=== PATIENT | female | born 1970 ===

== ENCOUNTER 2025-08-18 19:56 | Outpatient (REF) | payer BC, SELFPAY ==
--- OUTSIDE RECORDS SUMMARY | 2025-08-05 09:00 | XMS_ITS | Encounter Summary ---
Author Organization [facility] Address [address] [place] [address] Care Team Providers Care Senior Trial Attorney Name Role Phone David Hobbs MD Primary Care Provider + [phone] Reason for Visit * ReasonCommentsConsent Or InstructionsSurgery consult for RT foot Encounter Details DateTypeDepartmentCare Team (Latest Contact Info)Aypozvyzrbr56/12/2025 9:00 AM ESTOffice Visit [facility] [address] [place] [address], DPM FACFAS [address] [facility] [place] [address] Hallux valgus of right foot (Primary Dx); Neoplasm of uncertain behavior of skin Social History Tobacco UseTypesPacks/DayYears UsedDateSmoking Tobacco: FormerCigarettes Smokeless Tobacco: Never Tobacco Cessation:Counseling Given: Yes Alcohol UseStandard Drinks/WeekCommentsYes4 (1 standard drink = 0.6 oz pure alcohol)caffeine 3-4 cups/dayCommentsUnknownSex and Gender Information ValueDate RecordedSex Assigned at TpxgvEqmfun38/05/2023 9:59 AM ESTLegal Sex Asjyls2512/06/2022 6:56 PM EDTGender HvwgwnlsKcxfrz49/05/2023 9:59 AM ESTSexual OrientationNot on filedocumented as of this encounter Last Filed Vital Signs Vital SignReadingTime TakenCommentsBlood Acddkxsy006/7508/05/2025 8:59 AM EST Pjbfh088308/05/2025 8:59 AM ESTTemperature--Respiratory Rate--Oxygen Saturation-- Inhaled Oxygen Concentration--Ukzebv31.3 kg (210 lb)08/05/2025 8:59 AM ESTHeight 157.5 cm (5' 2 )08/05/2025 8:59 AM ESTBody Mass Index38.41110/05/2024 8:59 AM EST documented in this encounter Progress Notes * Taurus Lane DPM FACFAS - 08/05/2025 9:00 AM EST Images from the original note were not included. Patient: Chelsey Osborn : 1970 PCP: David Hobbs MD SUBJECTIVE This is a 55 y.o. female that presents today for a chief complaint of painful bunion deformity right foot. Patient had previous bunion correction while in in the early . She brought the operative report to the office today which revealed that she went olivo bunionectomy. 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 Thepatient is here to discuss their upcoming surgery. Planned procedure is Bhupendra bunionectomy Excision of soft tissue mass right foot. right foot. The patient has exhausted conservative care and wishesfor surgical intervention. They have attempted numerous conservative options including: Shoe gear mo difications, anti-inflammatory medications both steroid all and nonsteroidal, orthotic devices, cortisone injections, immobilization, physical therapy to no avail. They are here to sign consent formsand to address any other questions that may exist. Allergies: Allergies Allergen Reactions Penicillins Unknown Sulfa Antibiotics Unknown Other Reaction(s): Unknown Sulfamethoxazole-Trimethoprim Other Reaction(s): hives/swelling Past Medical History: Active Ambulatory Problems Diagnosis Date Noted No Active Ambulatory Problems Resolved Ambulatory Problems Diagnosis Date Noted No Resolved Ambulatory Problems Past Medical History: Diagnosis Date Bunion Hypertension Medications: Current Outpatient Medications: Ambien 10 MG tablet, 1 (one) time each day at the same time, Disp: , Rfl: cetirizine (ZyrTEC ALLERGY) 10 MG tablet, 1 (one) time each day at the same time, Disp: , Rfl: hydroCHLOROthiazide (HYDRODiuril) 25 MG tablet, , Disp: , Rfl: metoprolol succinate XL (Toprol-XL) 100 MG 24 hr tablet, , Disp: , Rfl: pramipexole (Mirapex) 0.25 MG tablet, , Disp: , Rfl: Protonix 40 MG EC tablet, 1 (one) time each day at the same time, Disp: , Rfl: ROS: Constitutional: Denies fever, chills, nausea, vomiting GI: Denies abdominal pain, cramping, loose stool, gastric ulcers Musculoskeletal: Denies low back pain, knee pain, systemic arthritis Neurologic: Denies burning, tingling, transient paralysis OBJECTIVE Physical examination: Vascular: Dorsalis pedis posterior tibial pulses are palpable bilateral, no edema noted Neuro: [place]-Xander 5.07 monofilament intact, vibratory sensation intact Derm: All hair growth noted skin temperature is warm to cool knees to toes patient was also developed a soft tissue mass at the previous incision site. It was freely mobile within the subcutaneous tissue and has been come slow-growing. Musculoskeletal: Muscle strength +5/5 all intrinsic and extrinsic muscles tested Prominent medial eminence noted at the right 1st metatarsophalangeal joint with bursal formation noted. Mild limitation in range of motion of the great toe joint noted as well the pain is with direct palpation 1st metatarsal medially. No hypermobility noted of the 1st ray. No hammertoe deformities noted of any significance. Bursa noted at the medial aspect of the great toe joint. Cardiac:: Regular rate and rhythm normal S1-S2 heart sounds no murmurs or gallops Respiratory: Breath sounds are equal bilaterally no wheezes crackles or strain XRAY: Reviewed Three views were taken today AP/MO/LAT foot: No fractures or dislocations seen Appears to have a resection of the 1st metatarsal head with mild cystic formation noted at the medial great toe joint. There has an increased intermetatarsal angle 1-2 14 degrees with a mild metatarsus adductus. There is mild osteopenia noted right foot Clinisync Result Encounter on 07/16/2025 Component Date Value Ref Range Status WBC 07/16/2025 9.0 4.0 - 11.0 E9/L Final RBC 07/16/2025 4.5 4.3 - 5.9 E12/L Final HGB 07/16/2025 14.1 12.0 - 16.0 gm/dL Final HCT 07/16/2025 41.0 34.0 - 46.0 % Final RDW 07/16/2025 14.3 (H) 10.9 - 14.2 % Final MCH 07/16/2025 31.1 27.0 - 34.0 pg Final MCHC 07/16/2025 34.4 31.4 - 36.0 gm/dL Final MCV 07/16/2025 90.2 80.0 - 100.0 fL Final MPV 07/16/2025 8.5 6.4 - 10.8 fL Final PLATELET 07/16/2025 252.0 150.0 - 500.0 E9/L Final NEUTRO AUTO 07/16/2025 64.9 36.0 - 75.0 % Final LYMPH AUTO 07/16/2025 27.4 14.0 - 50.0 % Final MONO AUTO 07/16/2025 5.3 4.0 - 14.0 % Final EOS AUTO 07/16/2025 1.2 0.0 - 8.0 % Final BASOPHIL AUTO 07/16/2025 1.2 0.0 - 2.0 % Final NEUTRO ABSOLUTE 07/16/2025 5.8 2.0 - 7.5 E9/L Final LYMPH ABSOLUTE 07/16/2025 2.5 1.0 - 4.0 E9/L Final MONO ABSOLUTE 07/16/2025 0.5 0.2 - 1.0 E9/L Final EOS ABSOLUTE 07/16/2025 0.1 0.0 - 0.5 E9/L Final BASOPHIL ABSOLUTE 07/16/2025 0.1 0.0 - 0.2 E9/L Final [facility] GLUCOSE LVL 07/16/2025 104 55 - 199 mg/dL Final [facility] BUN 07/16/2025 17 5 - 21 mg/dL Final [facility] CREATININE 07/16/2025 1.0 0.5 - 1.3 mg/dL Final [facility] BUN/CREAT RATIO 07/16/2025 17 10 - 20 No Units Final [facility] CALCIUM LVL 07/16/2025 9.6 8.9 - 11.1 mg/dL Final [facility] SODIUM LVL 07/16/2025 138 135 - 145 mmol/L Final [facility] POTASSIUM 07/16/2025 3.8 3.5 - 5.3 mmol/L Final [facility] CHLORIDE 07/16/2025 101 101 - 111 mmol/L Final [facility] CO2 07/16/2025 27 21 - 31 mmol/L Final [facility] AGAP 07/16/2025 14 6 - 16 mEq/L Final [facility] EGFR 07/16/2025 67 >=59 mL/min/1.73 m2 Final ASSESSMENT 1. Hallux valgus of right foot 2. Neoplasm of uncertain behavior of skin PLAN I educated the patient on hallux abductovalgus deformities. I discussed with the patient conservative versus surgical options. The patient feels she has exhausted conservative options and wishes for surgical intervention. I did educate her on her previous bunionectomy that was performed in the in the early in the fact that the joint was not corrected and only medial eminence was resected. I recommended at this time a distal metaphyseal osteotomy/ Bhupendra bunionectomy to help realignthe great toe joint as well as a bursectomy of the medial bursa that has formed over time. I am also recommending excision of the soft tissue mass that has developed recently. The patient was educated on the pre, precious, postoperative course of the procedure in great detail. We discussed further conservative therapies which the patient has attempted and has failed. I discussed the surgical procedure in great detail including the risks and possible complications. We discussed the following complications in great detail including but not limited to: Pain, infection, prolonged swelling, numbness, tingling, burning, nonhealing wound, nonunion, malunion, chronic pain, development of complex regional pain syndrome, development of deep venous thrombosis. Patient fully understood all possible risksand complications. All questions have been asked and answered. They have consented for the above-stated procedure.Patient has been cleared for MAC anesthesia or popliteal block. MIAH Daniel documented in this encounter Plan of Treatment DateTypeDepartmentCare Team (Latest Contact Info)Eatxxfaddbt45/02/2025 8:40 AM ESTOffice Visit [facility] [address] [place] [address], DPM FACFAS [address] [place] [address] 09/15/2025 1:05 PM ESTOffice Visit [facility] [address] [place] [address] Cris Boone MD [address] [place] [address] 08/24/2026 2:00 PM ESTProcedure Visit [facility] ARANAGYLashonda [address] [facility] [address] Tamir Giang DO [address] [facility] [address] [place] [place], [place] [id number] documented as of this encounter Visit Diagnoses Diagnosis Hallux valgus of right foot- Primary Neoplasm of uncertain behavior of skin documented in this encounter Care Teams Team MemberRelationshipSpecialtyStart DateEnd Date David Hobbs MD [address] [place] [address] PCP - GeneralFamily Medicine01/30/25documented as of this encounter
--- OUTSIDE RECORDS SUMMARY | 2025-08-18 08:25 | XMS_ITS | Encounter Summary ---
Author Organization [facility] Address [address] [place] [address] Care Team Providers Care Mobile Tester Name Role Phone David Hobbs MD Primary Care Provider [phone] Encounter Details DateTypeDepartmentCare Team (Latest Contact Info)Nyendhjbkwe34/25/2025 8:25 AM ESTAncillary Procedure [facility] [address] [place] [address] Social History Tobacco UseTypesPacks/DayYears UsedDateSmoking Tobacco: FormerCigarettes Smokeless Tobacco: NeverAlcohol UseStandard Drinks/WeekCommentsYes4 (1 standard drink = 0.6 oz pure alcohol)caffeine 3-4 cups/dayCommentsNoSex and Gender InformationValueDate RecordedSex Assigned at ShyxpAkglpg99/05/2023 9:59 AM ESTLegal XqlAmdupn63/15/2023 6:56 PM EDTGender TpjckneuXwuxxj47/05/2023 9:59 AM ESTSexual OrientationNot on filedocumented as of this encounter Plan of Treatment DateTypeDepartmentCare Team (Latest Contact Info)Zvdfqsvqhtc13/02/2025 8:40 AM ESTOffice Visit [facility] [address] [place] [address], DPM FACFAS 368 [facility] [address] [place], [place] [id number] 09/15/2025 1:05 PM ESTOffice Visit [facility] [address] [place] [address] Cris Boone MD [address] [facility] [address] [place], [place] [id number] 08/24/2026 2:00 PM ESTProcedure Visit [facility] [address] [facility] [place] [address] Tamir Giang DO [address] [facility] [place] [address] documented as of this encounter Procedures Procedure NamePriorityDate/TimeAssociated DiagnosisCommentsXR FOOT 3+ VIEWS PRSZHEkfqmsd82/25/2025 8:24 AM EST Hallux valgus of right foot documented in this encounter Results * XR foot 3+ views right (08/18/2025 8:24 AM EST)Anatomical RegionLaterality ModalityLower Extremities, FootRightRadiographic ImagingSpecimen (Source) Anatomical Location / LateralityCollection Method / VolumeCollection Time Received Time Narrative 08/18/2025 9:18 AM EST Imaging Result: Radiographs: ??AP/MO/LAT: excellent position and alignment of the great toe joint fixation intact good bevu-uc-fdcr contact. ??Joint in good alignment Authorizing ProviderResult TypeResult StatusMarc D Dolce DPM FACFASIMG XR PROCEDURESFinal Result documented in this encounter Visit Diagnoses Not on filedocumented in this encounter Care Teams Team MemberRelationshipSpecialtyStart DateEnd Date David Hobbs MD [address] [facility] [place] [address] PCP - GeneralFamily Medicine01/30/25documented as of this encounter
--- OUTSIDE RECORDS SUMMARY | 2025-08-18 08:30 | XMS_ITS | Encounter Summary ---
Author Organization [facility] Address [address] [place] [address] Care Team Providers Care Construction Area Manager Name Role Phone David Hobbs MD Primary Care Provider + [phone] Reason for Visit * ReasonCommentsFoot/ankle Post-opWK 1 post op - RT bhupendra Encounter Details DateTypeDepartmentCare Team (Latest Contact Info)Qbxpunbamlr72/25/2025 8:30 AM ESTOffice Visit [facility] [address] [place] [address], DPM FACFAS [address] [facility] [place] [address] Hallux valgus of right foot (Primary Dx); Right foot pain; Neoplasm of uncertain behavior of skin; Ankle contracture, right [M24.571] Social History Tobacco UseTypesPacks/DayYears UsedDateSmoking Tobacco: FormerCigarettes Smokeless Tobacco: Never Tobacco Cessation:Counseling Given: Yes Alcohol UseStandard Drinks/WeekCommentsYes4 (1 standard drink = 0.6 oz pure alcohol)caffeine 3-4 cups/dayCommentsNoSex and Gender InformationValue Date RecordedSex Assigned at GwyhsYoahqv08/05/2023 9:59 AM ESTLegal SexFemale 12/06/2022 6:56 PM EDTGender GpkwlbpiDfumcr49/05/2023 9:59 AM ESTSexual OrientationNot on filedocumented as of this encounter Last Filed Vital Signs Vital SignReadingTime TakenCommentsBlood Vklpqvbx419/7808/18/2025 8:24 AM EST Kteds341008/18/2025 8:24 AM ESTTemperature--Respiratory Rate--Oxygen Saturation-- Inhaled Oxygen Concentration--Mcuxqy27.3 kg (210 lb)08/18/2025 8:24 AM ESTHeight 157.5 cm (5' 2 )08/18/2025 8:24 AM ESTBody Mass Index38.41110/18/2024 8:24 AM EST documented in this encounter Progress Notes * Taurus Lane DPM FACFAS - 08/18/2025 8:30 AM EST Images from the original note were not included. Patient: Chelsey Osborn : 1970 PCP: David Hobbs MD SUBJECTIVE This is a 55 y.o. female that presents today The patient is here status post Bhupendra bunionectomy revisional excision of soft tissue mass right procedure. Postop week 1. They deny fevers, chills, nausea, vomiting, calf pain and shortness of breath. Pain level is being managed with ice elevation and pain medication. They have been relatively compliant with her postoperative care. Allergies: Allergies[1] Past Medical History: Active Ambulatory Problems Diagnosis Date Noted No Active Ambulatory Problems Resolved Ambulatory Problems Diagnosis Date Noted No Resolved Ambulatory Problems Past Medical History: Diagnosis Date Bunion Hypertension Medications: Current Medications[2] Review of systems: Constitutional: Denies fever, chills, nausea, vomiting GI: Denies abdominal pain, cramping, loose stool, gastric ulcers Musculoskeletal: Denies low back pain, knee pain, systemic arthritis Neurologic: Denies burning, tingling, transient paralysis OBJECTIVE Physical Examination: DERM: Positive hair growth to b/l feet with good skin turgor noted. Negative openings in skin VASC: DP /PT were palpable bilateral. Capillary refill time < 3 seconds Digits 1-5 bilateral NEURO: [place] Xander 5.07 monofilament was intact B/L. Vibratory sensation was intact B/L Musculoskeletal: Muscle strength was +5 over 5 all intrinsic and extrinsic muscles tested. NegativeHomans test noted Surgical site evaluation: The incision site is healing well without signs infection. Minimal swelling noted. Consistent with the patient's level of surgery consistent with time frame postoperatively.Sutures remain intact without signs of dehiscence. Mild swelling noted Radiographs: AP/MO/LAT: excellent position and alignment of the great toe joint fixation intact good aezd-at-pqll contact. Joint in good alignment Diagnostic ultrasound: ASSESSMENT 1. Hallux valgus of right foot 2. Right foot pain 3. Neoplasm of uncertain behavior of skin PLAN Today we applied a dry sterile dressing with betadine to the incision site. Covered the incision with 4x4s, Kerlix and Dimitri bandage. The Patient is to continue ice and elevation on a regular basis. They were reminded to remain compliant with her weight-bearing status in the ambulatory surgical device. Patient may start partial weight-bearing in a pneumatic walking boot which was dispensed to her today. Educated her on the postoperative radiographic findings follow up with me in 1 week for possible suture removal. Pneumatic Walking Boot ([id number]) was dispensed and applied at this visit. Due to the patient's diagnosis and related symptoms this is medically necessary for treatment. The function of this device is to restrict and limit motion, provide stabilization, immobilization, and compression to the affected area. The goals and function-of this device were explained in detail to the patient. The patient wasshown and told in detail how to properly wear and care for the device. Written instructions and warranty information was given along with the list of the current Durable Medical Equipment Supplier Guidelines. Taurus Lane DPM FACFAS [1] Allergies Allergen Reactions Penicillins Unknown Sulfa Antibiotics Unknown Other Reaction(s): Unknown Sulfamethoxazole-Trimethoprim Other Reaction(s): hives/swelling [2] Current Outpatient Medications: Ambien 10 MG tablet, 1 (one) time each day at the same time, Disp: , Rfl: cetirizine (ZyrTEC ALLERGY) 10 MG tablet, 1 (one) time each day at the same time, Disp: , Rfl: hydroCHLOROthiazide (HYDRODiuril) 25 MG tablet, , Disp: , Rfl: metoprolol succinate XL (Toprol-XL) 100 MG 24 hr tablet, , Disp: , Rfl: ondansetron (Zofran) 4 MG tablet, Take 2 tablets (8 mg) by mouth every 8 (eight) hours if needed for nausea or vomiting for up to 7 days, Disp: 20 tablet, Rfl: 0 pramipexole (Mirapex) 0.25 MG tablet, , Disp: , Rfl: Protonix 40 MG EC tablet, 1 (one) time each day at the same time, Disp: , Rfl: documented in this encounter Plan of Treatment DateTypeDepartmentCare Team (Latest Contact Info)Fsnpazbeqay03/02/2025 8:40 AM ESTOffice Visit [facility] [address] [place] [address], MIAH FACFAS [address] [place] [address] 09/15/2025 1:05 PM ESTOffice Visit [facility] [address] [place] [address] Cris Boone MD [address] [place] [address] 08/24/2026 2:00 PM ESTProcedure Visit [facility] [address] [facility] [place] [address] Tamir Giang DO [address] [facility] [place] [address] documented as of this encounter Procedures Procedure NamePriorityDate/TimeAssociated DiagnosisCommentsXR FOOT 3+ VIEWS RBQATAxbbufd22/25/2025 8:24 AM EST Hallux valgus of right foot documented in this encounter Results * XR foot 3+ views right (08/18/2025 8:24 AM EST)Anatomical RegionLaterality ModalityLower Extremities, FootRightRadiographic ImagingSpecimen (Source) Anatomical Location / LateralityCollection Method / VolumeCollection Time Received Time Narrative 08/18/2025 9:18 AM EST Imaging Result: Radiographs: ??AP/MO/LAT: excellent position and alignment of the great toe joint fixation intact good vlxg-ig-xlle contact. ??Joint in good alignment Authorizing ProviderResult TypeResult StatusMarc D Dolce DPM FACFASIMG XR PROCEDURESFinal Result documented in this encounter Visit Diagnoses Diagnosis Hallux valgus of right foot- Primary Right foot pain Pain in soft tissues of limb Neoplasm of uncertain behavior of skin Ankle contracture, right [M24.571] documented in this encounter Care Teams Team MemberRelationshipSpecialtyStart DateEnd Date David Hobbs MD [address] [place] [address] PCP - GeneralFamily Medicine01/30/25documented as of this encounter
--- OUTSIDE RECORDS SUMMARY | 2025-08-18 11:00 | XMS_ITS | Encounter Summary ---
Author Organization [facility] Address [address] [place] [address] Care Team Providers Care Director International Name Role Phone David Hobbs MD Primary Care Provider + [phone] Reason for Visit * ReasonCommentsWell Women Visit Encounter Details DateTypeDepartmentCare Team (Latest Contact Info)Vzflebkycgl51/25/2025 11:00 AM ESTOffice Visit [facility] [address] [facility] [place] [address] Tamir Giang DO [address] [facility] [address] [place], [facility]11 Well woman exam with routine gynecological exam; Encounter for screening mammogram for malignant neoplasm of breast; Postmenopausal state; Hot flashes due to menopause; Night sweats Social History Tobacco UseTypesPacks/DayYears UsedDateSmoking Tobacco: FormerCigarettes Smokeless Tobacco: NeverAlcohol UseStandard Drinks/WeekCommentsYes4 (1 standard drink = 0.6 oz pure alcohol)caffeine 3-4 cups/dayCommentsNoSex and Gender InformationValueDate RecordedSex Assigned at MtkubGrjahv63/05/2023 9:59 AM ESTLegal HvdTuqbes77/15/2023 6:56 PM EDTGender JrxihhmfGbpwmh77/05/2023 9:59 AM ESTSexual OrientationNot on filedocumented as of this encounter Last Filed Vital Signs Vital SignReadingTime TakenCommentsBlood Jzkbsxnf804/8208/18/2025 11:27 AM EST Pulse--Temperature--Respiratory Rate--Oxygen Saturation--Inhaled Oxygen Concentration--Edjqxw65.6 kg (208 lb 8 oz)08/18/2025 11:27 AM ESTHeight--Body Mass Index38.14110/18/2024 8:24 AM ESTdocumented in this encounter Plan of Treatment DateTypeDepartmentCare Team (Latest Contact Info)Czunvwjtsdo35/02/2025 8:40 AM ESTOffice Visit [facility] [address] [place] [address], DPM FACFAS [address] [place] [address] 09/15/2025 1:05 PM ESTOffice Visit [facility] [address] [facility] [address] [place] [address] Cris Boone MD [address] [facility] [address] [place] [address] 08/24/2026 2:00 PM ESTProcedure Visit [facility] [address] [facility] [place] [address] Tamir Giang DO [address] [facility] [address] [place] [place], [place] [id number] NameTypePriorityAssociated DiagnosesOrder ScheduleDEXA bone densityImaging Routine Postmenopausal state Expected: 08/18/2025 (Approximate), Expires: 08/18/2026THIN PREP TIS PAP AND HR HPV DNAPathology and CytologyRoutine Well woman exam with routine gynecological exam Ordered: 08/18/2025documented as of this encounter Visit Diagnoses Diagnosis Well woman exam with routine gynecological exam Routine gynecological examination Encounter for screening mammogram for malignant neoplasm of breast Postmenopausal state Asymptomatic postmenopausal status (age-related) (natural) Hot flashes due to menopause Night sweats Generalized hyperhidrosis documented in this encounter Care Teams Team MemberRelationshipSpecialtyStart DateEnd Date David Hobbs MD [address] [place] [address] PCP - GeneralFamily Medicine01/30/25documented as of this encounter
--- OUTSIDE RECORDS SUMMARY | 2025-08-18 20:02 | XMS_ITS | Encounter Summary ---
Author Organization [facility] Address [address] [place] [address] Care Team Providers Care Soldering Machine Feeder Name Role Phone David Hobbs MD Primary Care Provider [phone] Encounter Details DateTypeDepartmentCare Team (Latest Contact Info)Eljjctmccix69/20/2025bstract [facility] [address] [place] [address], DPM FACFAS [address] [place] [address] Social History Tobacco UseTypesPacks/DayYears UsedDateSmoking Tobacco: FormerCigarettes Smokeless Tobacco: NeverAlcohol UseStandard Drinks/WeekCommentsYes4 (1 standard drink = 0.6 oz pure alcohol)caffeine 3-4 cups/dayCommentsUnknownSex and Gender InformationValueDate RecordedSex Assigned at PuzdbLfxevn83/05/2023 9:59 AM ESTLegal QvzWfgkzf29/15/2023 6:56 PM EDTGender QdxigyyyZyizdr26/05/2023 9:59 AM ESTSexual OrientationNot on filedocumented as of this encounter Plan of Treatment DateTypeDepartmentCare Team (Latest Contact Info)Qwrcluaoefj49/02/2025 8:40 AM ESTOffice Visit [facility] [address] [place] [address], DPM FACFAS [address] [place] [address] 09/15/2025 1:05 PM ESTOffice Visit [facility] [address] [facility] [address] [place] [address] Cris Boone MD [address] [facility] [address] [place] [address] 08/24/2026 2:00 PM ESTProcedure Visit NOMMel [facility] [address] [facility] [place] [address] Tamir Giang DO [address] [facility] [address] [place], [place] [address] documented as of this encounter Visit Diagnoses Not on filedocumented in this encounter Care Teams Team MemberRelationshipSpecialtyStart DateEnd Date David Hobbs MD [address] [facility] [place] [address] PCP - GeneralFamily Medicine01/30/25documented as of this encounter
--- OUTSIDE RECORDS SUMMARY | 2025-08-18 20:02 | XMS_ITS | Encounter Summary ---
Author Organization [facility] Address [address] [place] [address] Care Team Providers Care Returned Materials Inspector Name Role Phone David Hobbs MD Primary Care Provider [phone] Encounter Details DateTypeDepartmentCare Team (Latest Contact Info)Jdkuybnmjoi52/12/2025amboo flowsheet [facility] [place] [address] [place] [address], DPM FACFAS [address] [place] [address] Social History Tobacco UseTypesPacks/DayYears UsedDateSmoking Tobacco: FormerCigarettes Smokeless Tobacco: NeverAlcohol UseStandard Drinks/WeekCommentsYes4 (1 standard drink = 0.6 oz pure alcohol)caffeine 3-4 cups/dayCommentsUnknownSex and Gender InformationValueDate RecordedSex Assigned at ActvwIuvmnt89/05/2023 9:59 AM ESTLegal AoeVrwqsa66/15/2023 6:56 PM EDTGender IpvfeszhAlphde98/05/2023 9:59 AM ESTSexual OrientationNot on filedocumented as of this encounter Plan of Treatment DateTypeDepartmentCare Team (Latest Contact Info)Rtixzzzungo81/02/2025 8:40 AM ESTOffice Visit [facility] [address] [place] [address], DPM FACFAS [address] [place] [address] 09/15/2025 1:05 PM ESTOffice Visit [facility] [address] [facility] [address] [place] [address] Cris Boone MD [address] [facility] [address] [place] [address] 08/24/2026 2:00 PM ESTProcedure Visit RADHA [place] OBGYLashonda [address] [place] [address] Tamir Giang DO [address] [facility] [address] [place] [place], [place] [phone] documented as of this encounter Visit Diagnoses Not on filedocumented in this encounter Care Teams Team MemberRelationshipSpecialtyStart DateEnd Date David Hobbs MD [address] [facility] [place] [address] PCP - GeneralFamily Medicine01/30/25documented as of this encounter
--- OUTSIDE RECORDS SUMMARY | 2025-08-18 20:02 | XMS_ITS | Encounter Summary ---
Author Organization [facility] Address [address] [place] [place] [address] Care Team Providers Care Digital Court Reporter Name Role Phone David Hobbs MD Primary Care Provider [phone] Encounter Details DateTypeDepartmentCare Team (Latest Contact Info)Pjjqyorpyir01/25/2025amboo flowsheet [facility] [place] [address] [place] [address], DPM FACFAS [address] [place] [address] Social History Tobacco UseTypesPacks/DayYears UsedDateSmoking Tobacco: FormerCigarettes Smokeless Tobacco: NeverAlcohol UseStandard Drinks/WeekCommentsYes4 (1 standard drink = 0.6 oz pure alcohol)caffeine 3-4 cups/dayCommentsNoSex and Gender InformationValueDate RecordedSex Assigned at AvqwoYbfycr69/05/2023 9:59 AM ESTLegal SalSmrleb53/15/2023 6:56 PM EDTGender XgdsayecEdvsue34/05/2023 9:59 AM ESTSexual OrientationNot on filedocumented as of this encounter Plan of Treatment DateTypeDepartmentCare Team (Latest Contact Info)Tzfbctxfwhj36/02/2025 8:40 AM ESTOffice Visit [facility] [address] [place] [address], DPM FACFAS 368 [place] [address] 09/15/2025 1:05 PM ESTOffice Visit [facility] [address] [facility] [address] [place] [address] Cris Boone MD [address] [facility] [address] [place] [address] 08/24/2026 2:00 PM ESTProcedure Visit RADHA [place] OBGYN [address] [facility] [place] [address] Tamir Giang DO [address] [facility] [place] [address] documented as of this encounter Visit Diagnoses Not on filedocumented in this encounter Care Teams Team MemberRelationshipSpecialtyStart DateEnd Date David Hobbs MD [address] [facility] [place] [address] PCP - GeneralFamily Medicine01/30/25documented as of this encounter
--- OUTSIDE RECORDS SUMMARY | 2025-08-18 20:02 | XMS_ITS | Encounter Summary ---
Author Organization [facility] Address [address] [place] [address] Care Team Providers Care Pourer Name Role Phone David Hobbs MD Primary Care Provider [phone] Encounter Details DateTypeDepartmentCare Team (Latest Contact Info)Qqtoozcgyzo94/24/2025Travel Social History Tobacco UseTypesPacks/DayYears UsedDateSmoking Tobacco: FormerCigarettes Smokeless Tobacco: NeverAlcohol UseStandard Drinks/WeekCommentsYes4 (1 standard drink = 0.6 oz pure alcohol)caffeine 3-4 cups/dayCommentsUnknownSex and Gender InformationValueDate RecordedSex Assigned at JuvrkFkbrup60/05/2023 9:59 AM ESTLegal WgbCqmkjk75/15/2023 6:56 PM EDTGender ChlxhkbcFnlxmc51/05/2023 9:59 AM ESTSexual OrientationNot on filedocumented as of this encounter Plan of Treatment DateTypeDepartmentCare Team (Latest Contact Info)Qjzlfrywjit69/02/2025 8:40 AM ESTOffice Visit [facility] [address] [place] [address], MIAH FACFAS [address] [facility] [address] 09/15/2025 1:05 PM ESTOffice Visit [facility] [address] [facility] [address] [place] [address] Cris Boone MD [address] [facility] [address] [place] [address] 08/24/2026 2:00 PM ESTProcedure Visit [facility] Melissa [place] [address] [facility] [place] [phone] Tamir Giang DO [address] [facility] [place] [address] documented as of this encounter Visit Diagnoses Not on filedocumented in this encounter Care Teams Team MemberRelationshipSpecialtyStart DateEnd Date David Hobbs MD [address] [place] [address] PCP - GeneralFamily Medicine01/30/25documented as of this encounter
--- OUTSIDE RECORDS SUMMARY | 2025-08-18 20:02 | XMS_ITS | Encounter Summary ---
Author Organization [facility] Address [address] [place] [address] Care Team Providers Care Institutional Cook Name Role Phone David Hobbs MD Primary Care Provider [phone] Encounter Details DateTypeDepartmentCare Team (Latest Contact Info)Mudmttpkgbl21/10/2025Telephone [facility] Podiatry [address] [place] [address] DPM FACSHAILA [address] [place], [place] [phone] Social History Tobacco UseTypesPacks/DayYears UsedDateSmoking Tobacco: FormerCigarettes Smokeless Tobacco: NeverAlcohol UseStandard Drinks/WeekCommentsYes4 (1 standard drink = 0.6 oz pure alcohol)caffeine 3-4 cups/dayCommentsUnknownSex and Gender InformationValueDate RecordedSex Assigned at PbkioOblhyc82/05/2023 9:59 AM ESTLegal QscVsxoqg97/15/2023 6:56 PM EDTGender GzpwtqotRtpvfp73/05/2023 9:59 AM ESTSexual OrientationNot on filedocumented as of this encounter Miscellaneous Notes * Telephone Encounter - Johanny Trevino - 08/11/2025 4:28 PM EST All required documents have been uploaded to [employer] portal. * Telephone Encounter - MIAH Daniel - 08/06/2025 7:42 PM EST done * Telephone Encounter - Johanny Trevino - 08/06/2025 3:31 PM EST You cleared patient at pre op visit yesterday, can you addend note to reflect that patient is cleared? * Telephone Encounter - Johanny Trevino - 07/15/2025 2:02 PM EDT Per call with BCBS with Ed, paul is active and and HIRO are in network. Patient has met 900 individual deductible and has met [phone] of 3,700 oop deductible. Code 71614 does require priorauthorization through [facility]. Reference#:[id number] Tracking#: [id number] PST is scheduled 07-[address] Taurus ayala clear at pre op Surgery scheduled on both portals. Demographics, insurance card, office notes, sx form uploaded to [facility] portal. * Telephone Encounter - Johanny Trevino - 06/19/2025 9:58 AM EDT Patient came in yesterday and signed FMLA form and paid forms fee, dropped off FMLA paperwork. * Telephone Encounter - Erin Cunha MA - 03/20/2025 2:57 PM EDT Pt called and states she would like to proceed with scheduling procedure for RT bunion on August 13. Please contact patient to discuss scheduling surgery * Telephone Encounter - Johanny Trevino - 02/12/2025 4:12 PM EDT Patient is going to call with dates that she wants to have surgery. * Telephone Encounter - MIAH Daniel - 01/31/2025 6:22 AM EDT Phone #: [phone] Insurance: Payor: BCBS / Plan: BCBS / Product Type: *No Product type* / Preferred Date/Time: First Available [] KATHRYN []- patient wishes to schedule in the Fall Patient Name: Chelsey Osborn : 1970 Surgeon: Dr. Taurus Lane [x] Dr. Saúl Lane [] Location: [facility] [x] [facility] [] [facility] [] Procedure(s): Bhupendra bunionectomy right foot CPT Code(s): 77064 Diagnosis: ICD-10-CM 1. Hallux valgus of right foot M20.11 Procedure Time: 30 min [] 1 Hour [x] 1.5 Hour [] 2 Hours [] Anesthesia: MAC [x] General [] Local [] Popliteal Block [] Position: Supine [] Prone [] Lateral [] Special Requests: C-arm [] Pulse Lavage [] VersaJet [] Special Equipment: Arthrex plate /screws [] Internal brace [] Arthrex FiberTak [] Biopro Staple [] Biopro Emre Impant [] Other [] Pre-op Orders: Abx 30 min Prior: 2g Ancef [x] Clindamycin 600mg [] Vancomycin 1 g [] Post-op WB: Partial WB [x] Non-WB [] Crutches [x] Walker [] Knee Scooter [] PCP Clearance: David Hobbs MD Other Clearance: Cardiology [] Rheumatology [] Other [x] documented in this encounter Plan of Treatment DateTypeDepartmentCare Team (Latest Contact Info)Fwvhdplxxuu56/02/2025 8:40 AM ESTOffice Visit [facility] [address] [place] [address], DPM FACFAS [address] [facility] [place] [place] [address] 09/15/2025 1:05 PM ESTOffice Visit [facility] [address] [facility] [address] [place] [address] Cris Boone MD [address] [facility] [address] [place] [address] 08/24/2026 2:00 PM ESTProcedure Visit NOMMel [facility] [address] [facility] [place] [address] Tamir Giang DO [address] [facility] [place] [address] documented as of this encounter Visit Diagnoses Diagnosis Hallux valgus of right foot- Primary documented in this encounter Care Teams Team MemberRelationshipSpecialtyStart DateEnd Date David Hobbs MD [address] [place] [address] PCP - GeneralFamily Medicine01/30/25documented as of this encounter
--- OUTSIDE RECORDS SUMMARY | 2025-08-18 20:02 | XMS_ITS | Encounter Summary ---
Author Organization [facility] Address [address] [place] [address] Care Team Providers Care Processing Manager Name Role Phone David Hobbs MD Primary Care Provider [phone] Encounter Details DateTypeDepartmentCare Team (Latest Contact Info)Hmiimgzgats38/18/2025Travel Social History Tobacco UseTypesPacks/DayYears UsedDateSmoking Tobacco: FormerCigarettes Smokeless Tobacco: NeverAlcohol UseStandard Drinks/WeekCommentsYes4 (1 standard drink = 0.6 oz pure alcohol)caffeine 3-4 cups/dayCommentsUnknownSex and Gender InformationValueDate RecordedSex Assigned at LmnjbBdedii31/05/2023 9:59 AM ESTLegal DbjMzfvvh55/15/2023 6:56 PM EDTGender IindxfvnKlbihz00/05/2023 9:59 AM ESTSexual OrientationNot on filedocumented as of this encounter Plan of Treatment DateTypeDepartmentCare Team (Latest Contact Info)Huwseutkiiq30/02/2025 8:40 AM ESTOffice Visit [facility] [address] [place] [address], MIAH FACFAS [address] [facility] [place] [address] 09/15/2025 1:05 PM ESTOffice Visit [facility] [address] [facility] [address] [place] [address] Cris Boone MD [address] [facility] [address] [place] [address] 08/24/2026 2:00 PM ESTProcedure Visit [facility] Melissa [facility] [address] [facility] [place] [address] Tamir Giang DO [address] [facility] [place] [address] documented as of this encounter Visit Diagnoses Not on filedocumented in this encounter Care Teams Team MemberRelationshipSpecialtyStart DateEnd Date David Hobbs MD [address] [place] [address] PCP - GeneralFamily Medicine01/30/25documented as of this encounter
--- OUTSIDE RECORDS SUMMARY | 2025-08-18 20:02 | XMS_ITS | Clinical Summary ---
Author Organization [facility] Address [address] [place] [address] Care Team Providers Care Platen Grinder Name Role Phone David Hobbs MD Primary Care Provider [phone] Allergies Active AllergyReactionsCriticalityNoted PoypOjalqdsaAudsoeooyjgTfertkc03/12/2023 Sulfa YcjbfukevuaFiimvij57/12/2023 Other Reaction(s): Unknown Sulfamethoxazole-Itvcffkyvrwx01/12/2023 Other Reaction(s): hives/swelling Medications MedicationSigDispense QuantityRefillsLast FilledStart DateEnd DateStatus Ambien 10 MG tablet 1 (one) time each day at the same timeActive pramipexole (Mirapex) 0.25 MG tablet 07/28/2023ctive Protonix 40 MG EC tablet 1 (one) time each day at the same timeActive metoprolol succinate XL (Toprol-XL) 100 MG 24 hr tablet 07/20/2023ctive hydroCHLOROthiazide (HYDRODiuril) 25 MG tablet 07/20/2023ctive cetirizine (ZyrTEC ALLERGY) 10 MG tablet 1 (one) time each day at the same timeActive ondansetron (Zofran) 4 MG tablet Indications:Hallux valgus of right footTake 2 tablets (8 mg) by mouth every 8 (eight) hours if needed for nausea or vomiting for up to 7 days 20 tablet /5Active estradiol (Climara) 0.05 MG/24HR Indications:Postmenopausal state,Hot flashes due to menopause,Night sweatsPlace 1 patch over 7 days on the skin 1 (one) time per week 36 patch ctive progesterone (Prometrium) 100 MG capsule Indications:Postmenopausal state,Hot flashes due to menopause,Night sweatsTake 1 capsule (100 mg) by mouth Daily 90 capsule ctive HYDROcodone-acetaminophen ([place]) 5-325 MG tablet Indications:PainTake 1 tablet by mouth every 6 (six) hours if needed for moderate pain (PRN pain) for up to 5 days TAKE 1 PILL P.O. Q.6H P.R.N. PAIN 15 tablet Expired Active Problems No known active problems Encounters DateTypeDepartmentCare TjiaHcncorkrybe29/25/2025 11:00 AM ESTOffice Visit [facility]S Melissa L[facility]ON [address] [place] [address] [place] [address] Tamir Giang, DO Well woman exam with routine gynecological exam; Encounter for screening mammogram for malignant neoplasm of breast; Postmenopausal state; Hot flashes due to menopause; Night sghbjp7510/18/2024 8:30 AM ESTOffice Visit [facility] [address] [place] [address], DPM FACFAS Hallux valgus of right foot (Primary Dx); Right foot pain; Neoplasm of uncertain behavior of skin; Ankle contracture, right [M24.571]08/18/2025 8:25 AM ESTAncillary Procedure [facility] [address] [place] [address] 08/18/2025amboo flowsheet [facility] [address] [place] [address] [address], DPM FACFAS 08/17/20251017Zlzmbg80/20/2025bstract [facility] [address] [place] [address], DPM FACFAS 08/11/20250249Otvlvy81/12/2025 9:00 AM ESTOffice Visit [facility] [address] [place] [address], DPM FACFAS Hallux valgus of right foot (Primary Dx); Neoplasm of uncertain behavior of skin08/05/2025Telephone [facility] [address] [place] [address], DPM FACFAS 08/05/2025amboo flowsheet [facility] [place] [address] [place] [address], DPM FACFAS 5Abstract [facility] Melissa [facility] [address] [facility] [address] Nimco Martines [place] 07/29/20257900Xpmpqk86/23/2025linisync Result Encounter NOMS External Department Unsolicited Taurus Lane, DPM FACFAS 07/09/2025Orders Only [facility] [address] [facility] [place] [address] Johanny Trevino Preop mxmxiamytjq74/14/2025Telephone [facility] [address] [facility] [address], DPM FACFAS from Last 3 Months Family History Medical HistoryRelationNameCommentsHeart diseaseFatherHypertensionFatherHeart diseaseMaternal GrandfatherHeart diseasePaternal GrandfatherRelationNameStatus CommentsFatherAliveMaternal GrandfatherDeceasedPaternal GrandfatherDeceased Paternal GrandmotherDeceased Social History Tobacco UseTypesPacks/DayYears UsedDateSmoking Tobacco: FormerCigarettes Smokeless Tobacco: Never Tobacco Cessation:Counseling Given: Yes Alcohol UseStandard Drinks/WeekCommentsYes4 (1 standard drink = 0.6 oz pure alcohol)caffeine 3-4 cups/dayCommentsNoSex and Gender InformationValue Date RecordedSex Assigned at WhyyfWozyra79/05/2023 9:59 AM ESTLegal SexFemale 12/06/2022 6:56 PM EDTGender MuvtudyoWpqbgu59/05/2023 9:59 AM ESTSexual OrientationNot on file Last Filed Vital Signs Vital SignReadingTime TakenCommentsBlood Crqnbkaq027/8208/18/2025 11:27 AM EST Ziseg677208/18/2025 8:24 AM ESTTemperature--Respiratory Rate--Oxygen Saturation-- Inhaled Oxygen Concentration--Wgtkfe56.6 kg (208 lb 8 oz)08/18/2025 11:27 AM EST Ispqsu293.5 cm (5' 2 )08/18/2025 8:24 AM ESTBody Mass Index38.14110/18/2024 8:24 AM EST Plan of Treatment DateTypeDepartmentCare Team (Latest Contact Info)Vwjddcjhetg35/02/2025 8:40 AM ESTOffice Visit [facility]ANYA POD [address] [place] [address] [address], DPM FACFAS [address] [place] [address] 09/15/2025 1:05 PM ESTOffice Visit [facility] [address] [place] [address] [place] [address] Cris Boone MD [address] [facility] [address] [place], [place] [address] 08/24/2026 2:00 PM ESTProcedure Visit RADHA [facility]ONDON [address] [facility] [place] [address] Tamir Giang DO [address] [place] [address] Health MaintenanceDue DateLast DoneCommentsCT Apjcujzypfrz1972Colonoscopy 1970Colorectal Cancer Irqmggtca1972FIT-DNA1972FIT1970 FOBT1970 9566Vmliidbohlgxx1972Pap Smear01/22/1993Cervical Cancer Vwbaxdkzr93/01/2002HPV/Mcftsz4301/22/20023666Rivnqqsyg37/01/2012COVID-19 Vaccine ( season)51, 08/08/2021, 10/20/2020, Additional history existsInfluenza AcuwqptEbsojoima59/30/2025, 06/26/2024, 07/09/2023, Additional history existsPneumococcal Vaccine: Pediatrics (0 to 5 Years) and At-Risk Patients (6 to 64 Years)Aged OutNo longer eligible based on patient's age to complete this topic Procedures Procedure NamePriorityDate/TimeAssociated DiagnosisCommentsXR FOOT 3+ VIEWS MJRUUFbzvmgd08/25/2025 8:24 AM EST Hallux valgus of right foot [facility] WIZEVmqrgvr65/23/2025 7:52 AM EDT [facility] BQDUsozdqy68/23/2025 7:52 AM EDT [facility] CBC W/ AUTO JOJIBqfctiz96/23/2025 7:52 AM EDT from Last 3 Months Results * XR foot 3+ views right (08/18/2025 8:24 AM EST)Anatomical RegionLaterality ModalityLower Extremities, FootRightRadiographic ImagingSpecimen (Source) Anatomical Location / LateralityCollection Method / VolumeCollection Time Received Time Narrative 08/18/2025 9:18 AM EST Imaging Result: Radiographs: ??AP/MO/LAT: excellent position and alignment of the great toe joint fixation intact good ralm-pq-dlsl contact. ??Joint in good alignment Authorizing ProviderResult TypeResult StatusMarc D Dolce DPM FACFASIMG XR PROCEDURESFinal Result * [facility] EGFR (07/16/2025 7:52 AM EDT)ComponentValueRef RangeTest MethodAnalysis TimePerformed AtPathologist SignatureSEILING REGIONAL MEDICAL [facility] EGFR67>=59 mL/min/1.73 m2SE[facility] Specimen (Source)Anatomical Location / LateralityCollection Method / Volume Collection TimeReceived XrjhKdaxd08/23/2025 7:52 AM EDT1 8:05 AM EDT Narrative [facility] - 07/16/2025 10:12 AM EDT Original Ordering Provider: DPJulio César Lane Authorizing ProviderResult TypeResult StatusTaurus Lane DPJulio César FACFASCLINISYNC Final ResultPerforming OrganizationAddressCity/State/ZIP CodePhone Number [facility] * (ABNORMAL) FT CBC W/ AUTO DIFF (07/16/2025 7:52 AM EDT)ComponentValueRef RangeTest MethodAnalysis TimePerformed AtPathologist SignatureWBC9.04.0 - 11.0 E9/LFTMCRBC4.54.3 - 5.9 E12/RUOWLLUX46.112.0 - 16.0 gm/vLWFFJFVR81.034.0 - 46.0 %IETXXTP19.3(H)10.9 - 14.2 %GFXOSWG97.127.0 - 34.0 mqJSYUELMZ84.431.4 - 36.0 gm/mLXTYGELF32.280.0 - 100.0 fLFTMCMPV8.56.4 - 10.8 wSRLFOFPIYHQXI800.0 150.0 - 500.0 E9/LFTMCNEUTRO AUTO64.936.0 - 75.0 %FTMCLYMPH AUTO27.414.0 - 50.0 %FTMCMONO AUTO5.34.0 - 14.0 %FTMCEOS AUTO1.20.0 - 8.0 %FTMCBASOPHIL AUTO 1.20.0 - 2.0 %FTMCNEUTRO ABSOLUTE5.82.0 - 7.5 E9/LFTMCLYMPH ABSOLUTE2.51.0 - 4.0 E9/LFTMCMONO ABSOLUTE0.50.2 - 1.0 E9/LFTMCEOS ABSOLUTE0.10.0 - 0.5 E9/L FTMCBASOPHIL ABSOLUTE0.10.0 - 0.2 E9/LFTMCSpecimen (Source)Anatomical Location / LateralityCollection Method / VolumeCollection TimeReceived TimeBlood 07/16/2025 7:52 AM EDT1 8:05 AM EDT Narrative [facility] - 07/16/2025 8:10 AM EDT Original Ordering Provider: MIAH Lane Authorizing ProviderResult TypeResult StatusMarc D Dolce DPM FACFASCLINISYNC Final ResultPerforming OrganizationAddressCity/State/ZIP CodePhone Number [facility] * [facility] BMP (07/16/2025 7:52 AM EDT)ComponentValueRef RangeTest MethodAnalysis TimePerformed AtPathologist SignatureSEILING REGIONAL [facility] GLUCOSE PFM53187 - 199 mg/dLGARDEN CITY [facility] GTN982 - 21 mg/dLGARDEN CITY H[facility]PITAL CREATININE1.00.5 - 1.3 mg/dLGARDEN CITY HOSPITAL BUN/CREAT AOFCP9981 - 20 No UnitsGARDEN CITY HOSPITAL CALCIUM LVL9.68.9 - 11.1 mg/dLGARDEN CITY HOSPITAL SODIUM QEZ947703 - 145 mmol/LFTMCFTMC POTASSIUM3.83.5 - 5.3 mmol/LFTMCFTMC CHLORIDE 065650 - 111 mmol/LFTMCFTMC CB70657 - 31 mmol/LFTMCFTMC HQLA710 - 16 mEq/LFTMC Specimen (Source)Anatomical Location / LateralityCollection Method / Volume Collection TimeReceived RfvcSorur51/23/2025 7:52 AM EDT1 8:05 AM EDT Narrative [facility] - 07/16/2025 10:12 AM EDT Original Ordering Provider: MIAH Lane Authorizing ProviderResult TypeResult StatusMarc D Dolce DPM FACFASCLINISYNC Final ResultPerforming OrganizationAddressty/State/ZIP CodePhone Number [facility] from Last 3 Months Insurance * Guarantor: Chelsey Osborn TypeRelation to PatientDate of BirthPhone Billing AddressPersonal/CdwxrgUlgt1970 [facility] [place] [address] * Guarantor: Chelsey Osborn TypeRelation to PatientDate of BirthPhone Billing AddressPersonal/EdbswmYtyi1970 [facility] [place] [address] Care Teams Team MemberRelationshipSpecialtyStart DateEnd Date David Hobbs MD [address] [place] [address] PCP - GeneralFamily Medicine01/30/25
--- OUTSIDE RECORDS SUMMARY | 2025-08-18 20:02 | XMS_ITS | Encounter Summary ---
Author Organization [facility] Address [address] [place] [address] Care Team Providers Care Munitions Handler Name Role Phone David Hobbs MD Primary Care Provider [phone] Encounter Details DateTypeDepartmentCare Team (Latest Contact Info)Cswxkzffbqi82/11/2025bstract [facility] [address] [place] [address] [place] [address] [place] Social History Tobacco UseTypesPacks/DayYears UsedDateSmoking Tobacco: FormerCigarettes Smokeless Tobacco: NeverAlcohol UseStandard Drinks/WeekCommentsYes4 (1 standard drink = 0.6 oz pure alcohol)caffeine 3-4 cups/dayCommentsUnknownSex and Gender InformationValueDate RecordedSex Assigned at WlzdtCdjsry36/05/2023 9:59 AM ESTLegal QdcOrhfvk51/15/2023 6:56 PM EDTGender FtmvlormCrwluh62/05/2023 9:59 AM ESTSexual OrientationNot on filedocumented as of this encounter Plan of Treatment DateTypeDepartmentCare Team (Latest Contact Info)Khyauzwnsct56/02/2025 8:40 AM ESTOffice Visit [facility] [address] [place] [id number], DPM FACFAS [address] [place] [address] 09/15/2025 1:05 PM ESTOffice Visit [facility] [address] [place] [address] Cris Boone MD [address] [place] [address] 08/24/2026 2:00 PM ESTProcedure Visit [facility] [address] [facility] [place] [address] Tamir Giang DO [address] [facility] [place] [address] documented as of this encounter Visit Diagnoses Not on filedocumented in this encounter Care Teams Team MemberRelationshipSpecialtyStart DateEnd Date David Hobbs MD [address] [place] [address] PCP - GeneralFamily Medicine01/30/25documented as of this encounter
--- OUTSIDE RECORDS SUMMARY | 2025-08-18 20:02 | XMS_ITS | Encounter Summary ---
Author Organization [facility] Address [address] [place] [address] Care Team Providers Care Appliance Installer Name Role Phone David Hobbs MD Primary Care Provider [phone] Encounter Details DateTypeDepartmentCare Team (Latest Contact Info)Hjbzhucijdp83/12/2025Telephone [facility] [address] [place] [address], DPM FACFAS [address] [facility] [place] [address] Social History Tobacco UseTypesPacks/DayYears UsedDateSmoking Tobacco: FormerCigarettes Smokeless Tobacco: NeverAlcohol UseStandard Drinks/WeekCommentsYes4 (1 standard drink = 0.6 oz pure alcohol)caffeine 3-4 cups/dayCommentsUnknownSex and Gender InformationValueDate RecordedSex Assigned at BzvpgUrposp34/05/2023 9:59 AM ESTLegal QpqBydlye65/15/2023 6:56 PM EDTGender AvkbonroObshdj35/05/2023 9:59 AM ESTSexual OrientationNot on filedocumented as of this encounter Miscellaneous Notes * Telephone Encounter - Johanny Trevino - 08/06/2025 1:31 PM EST Code added to surgery schedule. documented in this encounter Plan of Treatment DateTypeDepartmentCare Team (Latest Contact Info)Mzbhxaiysrt53/02/2025 8:40 AM ESTOffice Visit [facility] [address] [place] [address], DPM FACFAS [address] [place] [address] 09/15/2025 1:05 PM ESTOffice Visit [facility] [address] [place] [address] Cris Boone MD [address] [place] [address] 08/24/2026 2:00 PM ESTProcedure Visit [facility] [address] [place] [address] Tamir Giang DO [address] [facility] [place] [address] documented as of this encounter Visit Diagnoses Diagnosis Hallux valgus of right foot- Primary documented in this encounter Care Teams Team MemberRelationshipSpecialtyStart DateEnd Date David Hobbs MD [address] [place] [address] PCP - GeneralFamily Medicine01/30/25documented as of this encounter
== END 2025-08-18 19:57 | disposition home or self-care (01) ==
LOC: LAB 19:56
PROVIDERS: Visit Provider Obstetrics & Gynecology
DX: Z01.419 Encounter for gynecological examination (general) (routine) without abnormal findings (principal)
CPT/HCPCS: 88175